=== PATIENT | male | born 1960 | race Caucasian/White ===

== ENCOUNTER 2020-10-07 14:05 | Outpatient (CLI) | payer OTHER ==
--- NOTE | 2020-10-07 14:40 | RAD ---
XR Shoulder Lt 3 View STANDARD: 10/07/2020 2:15 PM CLINICAL INDICATION: Chronic left shoulder pain without injury. COMPARISON: None. FINDINGS: Bones: No acute fracture. Glenohumeral joint: Normal alignment. AC joint: There is moderate AC joint osteoarthrosis. Visualized lung: Clear. Soft tissues: Within normal limits. IMPRESSION: Moderate left AC joint osteoarthrosis. No acute fracture or subluxation.
== END 2020-10-07 14:06 | disposition home or self-care (01) ==
LOC: MADRAD 14:05
PROVIDERS: ATTEND Family Medicine
DX: M25.512 Pain in left shoulder (principal); M19.012 Primary osteoarthritis, left shoulder

== ENCOUNTER 2021-08-06 08:20 | Outpatient (CLI) | payer OTHER | END 2021-08-06 08:21 | disposition home or self-care (01) | LOC: MADLAB 08:20 | PROVIDERS: ATTEND Family Medicine | DX: Z12.11 Encounter for screening for malignant neoplasm of colon (principal) | CPT/HCPCS: 82274 ==

== ENCOUNTER 2022-08-25 07:31 | Outpatient (CLI) | payer OTHER ==
[2022-08-25 07:47] LABS: Bilirubin Negative (Negative); Blood, Urine Negative (Negative); Clarity Clear (Clear); Glucose, Urine (Dipstick) Negative (Negative); Ketone, Urine Negative (Negative); Leukocyte Negative (Negative); Nitrite Negative (Negative); Protein, Urine (Dipstick) Negative (Neg-Trace); Urobilinogen 0.2 mg/dL (Less than 2); pH, Urine 5.5 (5.0-9.0)
[2022-08-25 07:51] LABS: Bacteria/HPF Rare-Few HPF (None Seen); RBC/HPF 0-3 HPF (0-3); Squamous Epithelial 0-3 HPF (0-3); WBC/HPF 0-3 HPF (0-3)
[2022-08-25 07:53] LABS: #Eosinphils 0.1 thou/uL (0.0-0.7); #Lymphocytes 1.9 thou/uL (1.20-3.40); #Monocytes 0.6 thou/uL (0.11-0.59); #Neutrophils 2.3 thou/uL (1.40-6.50); %Eosinophils 1.9 % (0.0-10.0); %Lymphocytes 38.8 % (21.0-51.0); %Monocytes 11.4 % (0.0-10.0); %Neutrophils 46.9 % (42.0-75.0); Hemoglobin 14.8 g/dL (14.0-18.0); Mean Corpuscular HGB CONC 32.5 g/dL (32.0-36.0); Mean Corpuscular Hemoglobin 30.1 pg (27.0-31.0); Mean Corpuscular Volume 92.5 fl (78.0-98.0); Mean Platelet Volume 7.3 fL (7.4-10.4); Platelet Count 239 10x3/uL (130-400); RBC Distribution Width 12.1 % (11.5-14.5); Red Blood Cell (RBC) Count 4.93 mill/uL (4.70-6.10); White Blood Cell (WBC) Count 4.9 10x3/uL (4.8-10.8)
[2022-08-25 08:51] LABS: ALT (SGPT) 29 U/L (8-55); AST (SGOT) 28 U/L (5-34); Albumin 4.3 g/dL (3.4-4.8); Alkaline Phosphatase 68 U/L (40-110); Anion Gap 13 mmol/L (10-20); BUN (Urea Nitrogen) 16 mg/dL (8.4-25.7); Bilirubin, Total 0.7 mg/dL (0.2-1.2); Calc. Creatinine Clearance 0 mL/min (70-130); Calcium 9.9 mg/dL (7.8-10.44); Carbon Dioxide 27 mmol/L (23-31); Cardiac Risk 3.2 (Less than 4.5); Chloride 102 mmol/L (98-107); Cholesterol 116 mg/dl (< 200 Desired); Estimated GFR 86; Globulin 2.6 g/dL (2.4-3.5); Glucose 98 mg/dL (80-115); HDL Cholesterol 36 mg/dL (>60 Neg Risk); LDL Cholesterol, Calculated 66 mg/dL; Potassium 4.8 mmol/L (3.5-5.1); Protein, Total 6.9 g/dL (5.8-8.1); Sodium 137 mmol/L (136-145); Triglycerides 69 mg/dL (Less than 150); Uric Acid 6.7 mg/dL (3.5-7.2)
[2022-08-25 09:04] LABS: Thyroid Stimulating Hormone 0.9943 uIU/mL (0.35-4.94)
[2022-08-25 11:42] LABS: Hemoglobin A1c 5.7 % (4.0-6.0)
[2022-08-25 12:04] LABS: Vitamin D, 25 Hydroxy 80.5 ng/ml (> 30.0)
== END 2022-08-25 07:32 | disposition home or self-care (01) ==
LOC: MADLAB 07:31
PROVIDERS: ATTEND Family Medicine
DX: I12.9 Hypertensive chronic kidney disease with stage 1 through stage 4 chronic kidney disease, or unspecified chronic kidney disease (principal); N18.9 Chronic kidney disease, unspecified; R31.21 Asymptomatic microscopic hematuria; R73.01 Impaired fasting glucose; E53.8 Deficiency of other specified B group vitamins; E55.9 Vitamin D deficiency, unspecified
CPT/HCPCS: 36415; 80053; 80061; 81001; 82306; 82607; 83036; 84443; 84550; 85025